=== PATIENT | male | born 1985 | race Caucasian/White ===

== ENCOUNTER 2019-10-05 12:25 | Inpatient (IN) ==
[2019-10-05 13:42] LABS: Amylase * 35 U/L (25-115); Lipase 108 U/L (73-393)
[2019-10-05] MEDS ORDERED: NORMAL SALINE 1,000 ML IV PRN (13:48)
[2019-10-05 14:04] LABS: Prothrombin Time (Patient) 12.2 Seconds (9.1-10.7)
[2019-10-05 14:08] LABS: INR 1.24 INR (0.92-1.08); Partial Thrombolplastin Time 26.4 Seconds (24-32)
[2019-10-05 14:13] LABS: Urine Bilirubin 1 mg/dl (NEGATIVE); Urine Blood Negative /ul (NEGATIVE); Urine Ketone 15 mg/dL (NEGATIVE); Urine Nitrite Negative (NEGATIVE); Urine Protein Negative (NEGATIVE); Urine Urobilinogen Normal (NORMAL)
[2019-10-05 14:20] LABS: CRP 24.8 mg/dL (0.0-0.9)
[2019-10-05 14:32] LABS: Urine Appearance Slightly Cloudy (CLEAR); Urine Color Amber; Urine WBC 0-5 /hpf (0-5)
[2019-10-05 14:33] LABS: Urine Bacteria TRACE; Urine RBC None Seen /hpf (0-5)
[2019-10-05 14:37] LABS: Cocaine Ur Negative (NEGATIVE); Urine Barbiturate Negative (NEGATIVE); Urine Benzodiazepines Negative (NEGATIVE); Urine Opiates Negative (NEGATIVE); Urine PCP Negative (NEGATIVE); Urine THC Negative (NEGATIVE)
--- NOTE | 2019-10-05 14:54 | ERNOTE ---
Lower Extremity HPI - Narrative Date of Service: 10/05/19 - General Lower Extremities Pain: leg: bilateral Time Seen by Provider: 10/05/19 13:21 Source: patient, family Exam Limitations: no limitations - Immun/Allergies/Home Medications Immunizations: IMMUNIZATION HX Immunizations Up to Date Yes History of Influenza Vaccine No Hx Pneumococcal Vaccination No Allergies/Adverse Reactions: Allergies Allergy/AdvReac Type Severity Reaction Status Date / Time No Known Allergies Allergy Verified 10/05/19 10:52 Home Medications: HOME MEDICATIONS NK 10/05/19 [Last Taken Unknown] - Pain Score Pain Score #1 Pain Score: 7 - History of Present Illness Narrative: The patient is a 34 year old male who presents for bilateral leg pain and fatigue which has been present since September 23. There are associated symptoms of intermittent fever. The patient reports bilateral thigh pain, 7/10. There are no alleviating factors. There are aggravating factors of activity. Previous treatments have included: none. The past medical history includes: previous cardiac cath September 04 which was negative. The social history is negative. The patient has had no known ill contacts. Patient was transferred to [facility] for possible [place] and had cardiac cath completed which was reported to patient as negative. Patient states he fell "ill" with fever and URI symptoms the week of and was prescribed Amoxil for clinical strep. Patient states that he has continued to have intermittent fever since September 23 with progressively worsening leg pain and fatigue with increased lethargy. Patient during course of illness has had follow up with cardiology, [facility] ER visit which both were reported as presumed viral illness. Patient today was sent to ER from [facility] with abnormal lab results of symptoms. Review of Systems - Review of Systems Constitutional: Present: fever, chills, diaphoresis, fatigue EYE: Present: no symptoms reported ENT: Present: no symptoms reported. Absent: ear pain, nasal drainage, sore throat Respiratory: Present: no symptoms reported. Absent: shortness of breath, cough Cardiology: Present: no symptoms reported. Absent: chest pain Gastrointestinal/Abdominal: Present: diarrhea, eating less, drinking less. Absent: nausea, vomiting, abdominal pain Genitourinary: Present: decreased urinary output. Absent: dysuria Musculoskeletal: Present: muscle pain - bilateral thighs and legs Skin: Present: no symptoms reported. Absent: rash Neurological: Present: weakness All Other Systems: All systems neg except as marked Medical History (Last Reviewed 10/05/19 @ 14:58 by DELILAH Oleary) Concern about heart attack without diagnosis says the support manager told him it was fluid that built up resembling a heart attack but don't think it was a heart attack No pertinent past medical history Surgical History: Surgical History (Last Reviewed 10/05/19 @ 14:58 by DELILAH Oleary) History of left heart catheterization Family History: Family History (Last Reviewed 10/05/19 @ 14:58 by DELILAH Oleary) Mother Myocardial infarction Father Cancer Social History: (Last Reviewed 10/05/19 @ 14:58 by DELILAH Oleary) Tobacco: Smoking Status: Never smoker Alcohol: alcohol intake: former Substance Use: substance use type: does not use Dietary Habits: caffeine: Yes Physical Exam - Physical Exam General Appearance: Present: wd/wn, alert, moderate distress, lethargic Head Exam: Present: normal inspection, no evidence of injury Eye Exam: Normal inspection: bilateral, PERRL: bilateral, EOMI: bilateral Neck: Present: normal inspection Respiratory: Present: no respiratory distress, normal breath sounds, no accessory muscle use, lungs clear Cardiovascular/Chest: Present: no murmur, tachycardia Gastrointestinal/Abdominal: Present: normal bowel sounds, nontender, nondistended, soft, no organomegaly Extremity Exam: Present: extremity edema - 1+ pitting bilateral lower extremities Neurological Exam: Present: alert, oriented, normal mood/affect, no motor/sensory deficits Skin Exam: Present: normal color, warm/dry Progress - Date and Time Seen: Date and Time: 10/05/19 15:05 Results of testing obtained outpatient from [facility] reviewed. Discussed results of testing with patient and family at bedside. Abnormal results without definitive findings of cause bacterial vs viral etiology. Discussed case with and will initiate treatment with Teflaro while cultures and remaining testing pending. Patient to US for Echo evaluation. Patient denies known exposure to tick borne disease, Lymes pending due to abnormal lab and leg pain. - Results and Orders Patient's Lab Results:: I have reviewed the patient's lab results. - Vital Signs Patient's Vital Signs:: I have reviewed the patient's vital signs. Vital Signs: Vital Signs 10/05/19 13:06 Temperature 36.4 C Pulse Rate 126 H Respiratory Rate 14 Blood Pressure 139/75 O2 Sat by Pulse Oximetry 99 - EKG EKG #1 EKG: NSR - tachycardia rate 120 EKG read: Reviewed by me - X-Ray X-Ray #1 X-Ray: chest Interpretation: Reviewed by me X-ray Comments: IMPRESSION: No acute cardiopulmonary process detected Electronically signed by Rohith Jensen M.D.. - Progress/Reassessment Chief Complaint: Lower Extremity Pain/ Injury Progress:: Unchanged Departure Clinical Impression: Hyponatremia, Acute hepatitis, Fever of unknown origin Leukocytosis Qualifiers: Leukocytosis type: unspecified Qualified Code(s): D72.829 - Elevated white blood cell count, unspecified - Departure Disposition: Still a patient Condition: Stable
[2019-10-05] MEDS: CEFTAROLINE FOSAMIL ACETATE 600 MG in DEXTROSE 5 % IN WATER 100 ML IV SCH ×2 (16:14)
--- NOTE | 2019-10-05 18:21 | HP ---
Chief Complaint - Chief Complaint Date of Service: 10/05/19 Time of Service: 16:43 Chief Complaint: Fatigue, lower extremity pain and fevers x3 weeks History of Present Illness: 34-year-old male with past medical history of learning disability presents from home with complaints of bilateral leg pain, recurrent fevers and fatigue. He was diagnosed with a myocardial infarct in early August and received a cardiac catheterization at [facility]. He was told his arteries were clear and the cause of his chest pain was secondary to inflammation. He was sent home with ibuprofen. One week later he began to feel ill again and developed recurrent fevers (up to 103 F), sore throat and was seen at the walk-in clinic where he was prescribed prednisone and amoxicillin for strep throat. He states fevers are resolved with ibuprofen but then would recur. He also complained of night sweats once the fever broke his bedsheets would be soaking wet. He states he developed diarrhea after being on amoxicillin but his symptoms of fever and sore throat did not improve. He then presented to the [facility] emergency department but was told there was his symptoms were secondary to a viral infection and was sent home. He denies any recent travel or any sick contacts. He then presented to the [place] walk-in clinic today and was found to have abnormal blood work with elevated white count and platelets. He was then sent to the emergency department. The patient was found to have a neutrophil predominant leukocytosis of 33,000, platelets of 640,000, sodium of 129, normal kidney function, calcium of 10.6, elevated liver enzymes, mildly elevated GGT of 114, negative troponin, BNP of 1,174, urine tox was negative, mono and strep were negative, urine was negative, and chest x-ray was negative. Echocardiogram was ordered and results are pending., Lyme titer pending. Medical History (Last Reviewed 10/05/19 @ 16:24 by Alberto Macdonald RN) Concern about heart attack without diagnosis says the information technology security manager told him it was fluid that built up resembling a heart attack but don't think it was a heart attack. Possible CHF No pertinent past medical history Surgical History: Surgical History (Last Reviewed 10/05/19 @ 16:24 by Alberto Macdonald RN) History of left heart catheterization Family History: Family History (Last Reviewed 10/05/19 @ 16:25 by Alberto Macdonald RN) Mother Myocardial infarction Father Cancer Social History: (Last Reviewed 10/05/19 @ 16:25 by Alberto Macdonald RN) Tobacco: Smoking Status: Never smoker Alcohol: alcohol intake: former Substance Use: substance use type: does not use Dietary Habits: caffeine: Yes Review Of Systems (GEN) - Review of Systems Generalized/Overall Review: Present: Chills, Fever EENTM: Present: Throat Pain Respiratory: Absent: Shortness of Breath Cardiac: Absent: Chest Pain Abdominal: Present: Diarrhea. Absent: Abdominal Pain Misc: All systems neg except as marked Immunizations: IMMUNIZATION HX Immunizations Up to Date Yes History of Influenza Vaccine No Hx Pneumococcal Vaccination No Allergies/Adverse Reactions: Allergies Allergy/AdvReac Type Severity Reaction Status Date / Time No Known Allergies Allergy Verified 10/05/19 10:52 Home Medications: HOME MEDICATIONS NK 10/05/19 [Last Taken Unknown] Exam - Exam Vital Signs: Vital Signs - Last Taken Temp 37.3 C 10/05/19 16:02 Pulse 105 H 10/05/19 16:02 Resp 14 10/05/19 16:02 BP 114/73 10/05/19 16:02 Pulse Ox 98 10/05/19 16:02 Constitutional: Present: Alert, Cooperative, Young, Thin and frail ENT Exam: Present: hearing grossly normal, dry mucous membranes Eye Exam: bilateral eye: normal inspection, EOMI Neck: Present: trachea midline, tender lateral - Bilaterally. Absent: lymphadenopathy (R), lymphadenopathy (L) Back Exam: Present: normal inspection, no CVA tenderness, no vertebral tenderness Respiratory: Present: chest non-tender, lungs clear, no respiratory distress, no accessory muscle use, No wheezing. Absent: crackles, rhonchi Cardiovascular/Chest: Present: normal peripheral pulses, no edema, no murmur, tachycardia Peripheral Pulses: dorsalis-pedis (R): 2+, dorsalis-pedis (L): 2+ Abdomen: Present: Normal bowel sounds, soft, nontender Extremity: Present: no pedal edema, leg pain - Bilateral Achilles tendon and desiree ateral posterior lateral aspect of upper thighs Skin Exam: Present: warm/dry, pallor Neurologic: Present: alert, normal mood/affect Appearance: Present: appropriate appearance, appropriate insight Eye contact: Present: cooperative Thoughts: Present: normal thought pattern, normal mood /affect Diagnostic Studies: Abnormal Lab Results 10/05/19 10/05/19 10/05/19 Range/Units 11:26 13:50 13:50 PT 12.2 H (9.1-10.7) Seconds INR (Anticoag Therapy) 1.24 H (0.92-1.08) INR GGT (4-104) U/L C-Reactive Prot, Quant 24.8 H (0.0-0.9) mg/dL B-Natriuretic Peptide 1174 H (5-140) pg/mL Urine Bilirubin 1 H (NEGATIVE) mg/dl Urine Ictotest Positive H (NEGATIVE) 10/05/19 Range/Units 14:13 PT (9.1-10.7) Seconds INR (Anticoag Therapy) (0.92-1.08) INR GGT 114 H (4-104) U/L C-Reactive Prot, Quant (0.0-0.9) mg/dL B-Natriuretic Peptide (5-140) pg/mL Urine Bilirubin (NEGATIVE) mg/dl Urine Ictotest (NEGATIVE) Laboratory Results PT 12.2 Seconds (9.1-10.7) H 10/05/19 13:50 INR (Anticoag Therapy) 1.24 INR (0.92-1.08) H 10/05/19 13:50 PTT (Grainger) 26.4 Seconds (24-32) 10/05/19 13:50 Lactic Acid, Venous 2.0 mmol/L (0.4-2.0) 10/05/19 13:50 GGT 114 U/L (4-104) H 10/05/19 14:13 Creatine Kinase Less than 7 U/L (0-259) 10/05/19 11:26 C-Reactive Prot, Quant 24.8 mg/dL (0.0-0.9) H 10/05/19 11:26 B-Natriuretic Peptide 1174 pg/mL (5-140) H 10/05/19 11:26 Amylase 35 U/L (25-115) 10/05/19 11:26 Lipase 108 U/L (73-393) 10/05/19 11:26 Urine Color Tash 10/05/19 13:50 Urine Appearance Slightly cloudy (CLEAR) 10/05/19 13:50 Urine pH 6.0 pH (5.0-7.0) 10/05/19 13:50 Ur Specific [place] 1.020 SP.GR. (1.005-1.030) 10/05/19 13:50 Urine Protein Negative mg/dL (NEGATIVE) 10/05/19 13:50 Urine Glucose (UA) Negative mg/dL (NEGATIVE) 10/05/19 13:50 Urine Ketones 15 mg/dL (NEGATIVE) 10/05/19 13:50 Urine Blood Negative /ul (NEGATIVE) 10/05/19 13:50 Urine Nitrate Negative (NEGATIVE) 10/05/19 13:50 Urine Bilirubin 1 mg/dl (NEGATIVE) H 10/05/19 13:50 Urine Ictotest Positive (NEGATIVE) H 10/05/19 13:50 Urine Urobilinogen Normal EU/dl (NORMAL) 10/05/19 13:50 Ur Leukocyte Esterase Negative /ul (NEGATIVE) 10/05/19 13:50 Urine RBC None seen /hpf (0-5) 10/05/19 13:50 Urine WBC 0-5 /hpf (0-5) 10/05/19 13:50 Ur Epithelial Cells 0-5 /hpf (0-5) 10/05/19 13:50 Urine Bacteria Trace (NONE) 10/05/19 13:50 Urine Culture Comments No culture indicated 10/05/19 13:50 Urine Opiates Screen Negative (NEGATIVE) 10/05/19 13:50 Barbiturate Screen Negative (NEGATIVE) 10/05/19 13:50 Ur Phencyclidine Scrn Negative (NEGATIVE) 10/05/19 13:50 Urine Amphetamine Negative (NEGATIVE) 10/05/19 13:50 U Benzodiazepines Scrn Negative (NEGATIVE) 10/05/19 13:50 Urine Cocaine Screen Negative (NEGATIVE) 10/05/19 13:50 Urine Marijuana (THC) Negative (NEGATIVE) 10/05/19 13:50 Monoscreen Negative (NEGATIVE) 10/05/19 13:50 Assessment/Plan - Narrative Narrative: 34-year-old male with past medical history of learning disability presents from home with complaints of bilateral leg pain, recurrent fevers and fatigue. He was diagnosed with a myocardial infarct in early August and received a cardiac catheterization at [facility]. He was told his arteries were clear and the cause of his chest pain was secondary to inflammation. He was sent home with ibuprofen. One week later he began to feel ill again and developed recurrent fevers (up to 103 F), sore throat and was seen at the walk-in clinic where he was prescribed prednisone and amoxicillin for strep throat. He states fevers are resolved with ibuprofen but then would recur. He also complained of night sweats once the fever broke his bedsheets would be soaking wet. He states he developed diarrhea after being on amoxicillin but his symptoms of fever and sore throat did not improve. He then presented to the [facility] emergency department but was told there was his symptoms were secondary to a viral infection and was sent home. He then presented to the [place] walk-in clinic today and was found to have abnormal blood work with elevated white count and platelets. He was then sent to the emergency department. The patient was found to have a neutrophil predominant leukocytosis of 33,000, platelets of 640,000, sodium of 129, normal kidney function, calcium of 10.6, elevated liver enzymes, mildly elevated GGT of 114, negative troponin, BNP of 1,174, urine tox was negative, mono and strep were negative, urine was negative, and chest x-ray was negative. Echocardiogram was ordered and results are pending., Lyme titer pending. He received 1 dose of Teflaro in the emergency department. Etiology of the leukocytosis, fever and leg pain is unclear. Differential includes infectious endocarditis versus lymphoma versus rheumatologic disease. Awaiting echocardiogram to rule out endocarditis. Blood cultures are pending. If symptoms of fever persist overnight I may consider ordering a CT abdomen/pelvis and chest to rule out lymphoma. Plan #1 continue with Teflaro #2 obtain CBC and CMP in the morning #3 IV fluid hydration with normal saline at 75 cc/h #4 VTE prophylaxis with Lovenox #5 follow-up echocardiogram and blood cultures - Assessment/Plan (1) Fever Problem: Acute Qualifiers: Encounter type: initial encounter (2) Thrombocytosis Problem: Acute (3) Leg pain, bilateral Problem: Acute (4) Fatigue Problem: Acute (5) Leukocytosis Problem: Acute Qualifiers: Leukocytosis type: unspecified Qualified Code(s): D72.829 - Elevated white blood cell count, unspecified (6) Hyponatremia Problem: Acute (7) Acute hepatitis Problem: Acute
[2019-10-05] MEDS: NORMAL SALINE 1,000 ML IV PRN (19:03)
[2019-10-05] MEDS: ENOXAPARIN SODIUM 40 MG/0.4 ML SYRG SC SCH (19:05)
[2019-10-05] MEDS: ACETAMINOPHEN 325 MG TABLET PO PRN (23:32)
[2019-10-06] MEDS: CEFTAROLINE FOSAMIL ACETATE 600 MG in DEXTROSE 5 % IN WATER 100 ML IV SCH ×6 (02:59→17:22)
[2019-10-06 06:56] LABS: Hematocrit 38.2 % (42.0-52.0); Hemoglobin 12.7 gm/dL (13.5-18.0); Mean Cell Volume 89.9 fl (78-100); Mean Corpuscular Hemoglobin 29.9 pg (27-31); Mean Corpuscular Hgb Conc 33.2 g/dl (32-36); Mean Platelet Volume 8.4 fl (8-11.3); Platelet Count 507 K/mm3 (150-450); Red Blood Count 4.25 M/mm3 (4.7-6.0); Red Cell Distribution Width 13.7 % (11.5-14.0); White Blood Count 29.3 K/mm3 (4.0-10.5)
[2019-10-06 06:58] LABS: Total Cells Counted 100
[2019-10-06 07:09] LABS: Albumin * 1.8 gm/dl (3.4-5.0); Anion Gap 10.7 mmol/L (6.8-13.8); BUN/Creatinine Ratio 13.4 (9.0-21.6); Ca. Corrected For Albumin 10.4 mg/dL (8.4-10.2); Carbon Dioxide 29.5 mmol/L (24-32.6); Potassium 4.2 mmol/L (3.4-4.6); Total Protein 7.1 gm/dL (6.2-8.2)
[2019-10-06 07:17] LABS: Band 7 % (0-2.0); Lymphocyte 7 % (20-51); Monocyte 3 % (0-9); Neutrophil 83 % (42-75); Neutrophil # 24.3 K/mm3 (1.3-6.0)
[2019-10-06 07:18] LABS: Platelet Estimate Increased (NORMAL)
[2019-10-06 07:19] LABS: Basophilic Stippling Trace
[2019-10-06 07:20] LABS: Toxic Granulation Trace
[2019-10-06] MEDS: NORMAL SALINE 1,000 ML IV PRN ×2 (08:52→23:25)
--- NOTE | 2019-10-06 10:36 | ECHO ---
This report is available in the EMR
[2019-10-06] MEDS ORDERED: DIATRIZOATE MEGLUMINE, SODIUM 30 ML BTL PO ONE (11:28)
--- NOTE | 2019-10-06 15:18 | PN ---
Subjective - Date and Time Seen Date: 10/06/19 Time: 09:00 Subjective Narrative: He continues to feel fatigued and did spike a fever with night sweats overnight. Objective - Review of Systems Generalized/Overall Review: Reports: Chills, Fever, Diaphoresis Respiratory: Denies: Shortness of Breath Cardiac: Denies: Chest Pain Abdominal: Denies: Abdominal Pain Misc: All systems neg except as marked - Vitals Vitals: Last Vital Signs Temp 37.3 C 10/06/19 13:33 Pulse 113 H 10/06/19 13:33 Resp 18 10/06/19 13:33 BP 102/64 10/06/19 13:33 Pulse Ox 98 10/06/19 13:33 - Abnormal Lab Findings Abnormal Lab Findings: Abnormal Lab Results 10/06/19 10/06/19 10/06/19 Range/Units 06:51 06:51 06:51 WBC 29.3 H (4.0-10.5) K/mm3 RBC 4.25 L (4.7-6.0) M/mm3 Hgb 12.7 L (13.5-18.0) gm/dL Hct 38.2 L (42.0-52.0) % Plt Count 507 H (150-450) K/mm3 Neutrophils % (Manual) 83 H (42-75) % Band Neuts % (Manual) 7 H (0-2.0) % Lymphocytes % (Manual) 7 L (20-51) % Neutrophils # (Manual) 24.3 H (1.3-6.0) K/mm3 Platelet Estimate Increased H (NORMAL) ESR (0-10) mm/hr Est GFR (Non-Af Amer) 143 H (60-130) mL/min Random Glucose 125 H (70-110) mg/dL Calcium Adj for Albumin 10.4 H (8.4-10.2) mg/dL AST 123 H (0-48) U/L ALT 203 H (19-67) U/L Alkaline Phosphatase 221 H (50-170) U/L Albumin 1.8 L (3.4-5.0) gm/dl Procalcitonin 0.97 H (0.05-0.50) ng/mL 10/06/19 Range/Units 06:51 WBC (4.0-10.5) K/mm3 RBC (4.7-6.0) M/mm3 Hgb (13.5-18.0) gm/dL Hct (42.0-52.0) % Plt Count (150-450) K/mm3 Neutrophils % (Manual) (42-75) % Band Neuts % (Manual) (0-2.0) % Lymphocytes % (Manual) (20-51) % Neutrophils # (Manual) (1.3-6.0) K/mm3 Platelet Estimate (NORMAL) ESR 106 H (0-10) mm/hr Est GFR (Non-Af Amer) (60-130) mL/min Random Glucose (70-110) mg/dL Calcium Adj for Albumin (8.4-10.2) mg/dL AST (0-48) U/L ALT (19-67) U/L Alkaline Phosphatase (50-170) U/L Albumin (3.4-5.0) gm/dl Procalcitonin (0.05-0.50) ng/mL - Exam Constitutional: Present: Alert, Cooperative, Well developed, Well nourished, No distress, Thin and frail ENT Exam: Present: hearing grossly normal Neck: Present: non-tender. Absent: lymphadenopathy (R), lymphadenopathy (L) Respiratory: Present: lungs clear, no respiratory distress, no accessory muscle use, No wheezing. Absent: crackles, rhonchi Cardiovascular/Chest: Present: normal peripheral pulses, regular rate, rhythm, no edema, no murmur Abdomen: Present: Normal bowel sounds, soft, nontender Extremity: Present: no pedal edema, other - Pinpoint tenderness to the right Achilles tendon and the posterior/lateral aspect of both thighs Skin Exam: Present: warm/dry, pallor Neurologic: Present: no motor/sensory deficits, alert, normal mood/affect Appearance: Present: appropriate appearance, appropriate insight Eye contact: Present: cooperative Thoughts: Present: normal thought pattern, normal mood /affect Assessment/Plan Plan Narrative: 34-year-old male with past medical history of learning disability presents from home with complaints of bilateral leg pain, recurrent fevers and fatigue. He was diagnosed with a myocardial infarct in early August and received a cardiac catheterization at [facility]. He was told his arteries were clear and the cause of his chest pain was secondary to inflammation. He was sent home with ibuprofen. One week later he began to feel ill again and developed recurrent fevers (up to 103 F), sore throat and was seen at the walk-in clinic where he was prescribed prednisone and amoxicillin for strep throat. He states fevers are resolved with ibuprofen but then would recur. He also complained of night sweats once the fever broke his bedsheets would be soaking wet. He states he developed diarrhea after being on amoxicillin but his symptoms of fever and sore throat did not improve. He then presented to [facility] but was told there was his symptoms were secondary to a viral infection and was sent home. He then presented to the [facility] walk-in clinic today and was found to have abnormal blood work with elevated white count and platelets. He was then sent to the emergency department. The patient was found to have a neutrophil predominant leukocytosis of 33,000, platelets of 640,000, sodium of 129, normal kidney function, calcium of 10.6, elevated liver enzymes, mildly elevated GGT of 114, negative troponin, BNP of 1,174, urine tox was negative, mono and strep were negative, urine was negative, and chest x-ray was negative. Echocardiogram was ordered and results are pending., Lyme titer pending. He received 1 dose of Teflaro in the emergency department. Etiology of the leukocytosis, fever and leg pain is unclear. Differential includes infectious endocarditis versus lymphoma versus rheumatologic disease. Echocardiogram showed hyperactivity. Blood cultures show no growth. CT chest showed minimal linear density in the costophrenic angle suggestive of atelectasis. CT abdomen showed mild hepatosplenomegaly, multiple small lymph nodes in the mesentery and small amount of free fluid in the pelvis. I consulted with infectious disease at [facility] Dr. Bobby Heredia and she recommended obtaining ESR, pro calcitonin, EBV panel and CMV, she was in agreement with obtaining the CT chest abdomen pelvis to look for focus of infection. She also stated that if no focus of infection is found and the patient is not septic, it may be beneficial to stop the antibiotics because we do not know what we are treating. If fever and leukocytosis persist over the next d 1 or 2 days, I will consider transferring him to a facility for a higher level of care in order for him to be evaluated by multiple specialists including rheumatology, hematology/oncology and infectious disease. He could also obtain a BRANDON to rule out endocarditis. #1 continue with Teflaro #2 obtain CBC and CMP in the morning #3 Due to his poor oral intake I will continue IV fluid hydration with normal saline at 75 cc/h #4 VTE prophylaxis with Lovenox, he has declined to receive Lovenox and also declines the compression devices #5 Tylenol 650 mg every 6 hours as needed fever and pain - Problems/Diagnosis (1) Fever Problem: Acute Qualifiers: Encounter type: initial encounter (2) Thrombocytosis Problem: Acute (3) Leg pain, bilateral Problem: Acute (4) Fatigue Problem: Acute (5) Leukocytosis Problem: Acute Qualifiers: Leukocytosis type: unspecified Qualified Code(s): D72.829 - Elevated white blood cell count, unspecified (6) Hyponatremia Problem: Acute (7) Acute hepatitis Problem: Acute
[2019-10-06] MEDS: ENOXAPARIN SODIUM 40 MG/0.4 ML SYRG SC SCH (17:18)
[2019-10-07] MEDS: CEFTAROLINE FOSAMIL ACETATE 600 MG in DEXTROSE 5 % IN WATER 100 ML IV SCH ×4 (04:00→15:27)
[2019-10-07 06:57] LABS: Hematocrit 34.4 % (42.0-52.0); Hemoglobin 11.2 gm/dL (13.5-18.0); Mean Cell Volume 90.5 fl (78-100); Mean Corpuscular Hemoglobin 29.5 pg (27-31); Mean Corpuscular Hgb Conc 32.6 g/dl (32-36); Mean Platelet Volume 8.6 fl (8-11.3); Platelet Count 470 K/mm3 (150-450); Red Cell Distribution Width 13.9 % (11.5-14.0); White Blood Count 19.8 K/mm3 (4.0-10.5)
[2019-10-07 07:33] LABS: Albumin * 1.7 gm/dl (3.4-5.0); BUN/Creatinine Ratio 12.5 (9.0-21.6); Bilirubin, Total 0.7 mg/dL (0.0-1.1); Ca. Corrected For Albumin 9.5 mg/dL (8.4-10.2); Total Protein 5.8 gm/dL (6.2-8.2)
[2019-10-07 07:50] LABS: Anion Gap 12.3 mmol/L (6.8-13.8); Potassium 4.3 mmol/L (3.4-4.6)
[2019-10-07 10:49] LABS: Total Cells Counted 100
[2019-10-07 10:52] LABS: Band 1 % (0-2.0); Eosinophil 1 % (0-3); Immature Granulocyte 1 (0-1); Lymphocyte 5 % (20-51); Monocyte 2 % (0-9); Neutrophil 90 % (42-75); Neutrophil # 17.8 K/mm3 (1.3-6.0)
[2019-10-07 10:54] LABS: Platelet Estimate Increased (NORMAL)
--- NOTE | 2019-10-07 12:43 | PATHPSR ---
PHYSICIAN: Kathe Alexis MD LAB#: [id number] SPECIMEN DATE: 10/07/2019 CLINICAL INFORMATION: The patient is a 34-year-old man with medical history of learning disability who presents from home with complaints of bilateral leg pain, recurrent fevers and fatigue. Patient has elevated liver enzymes, BNP of 1174 pg/ml and so far blood cultures are negative. The patient presented with increased leukocytosis 29.3 K/mm3 predominantly neutrophils. A peripheral smear review by pathologist is ordered for this reason. CBC: WBC 19.8 K/mm3, hemoglobin 11.2 gm/dl, hematocrit 34.4 %, MCV is 90.5 fl, MCH is 29.5 pg, MCHC is 32.6 g/dl, Platelet count 470,000/mm. Manual differential: Neutrophils 90 %, bands 1 %, lymphocytes 5 %, monocytes 2 %, eosinophils 1 %, immature granulocytes 1%. RED BLOOD CELLS: Normochromic normocytic anemia PLATELETS: Minimal thrombocytosis WHITE BLOOD CELLS: Leukocytosis with relative and absolute neutrophilia DIAGNOSIS: PERIPHERAL BLOOD SMEAR, REVIEW BY PATHOLOGIST: -MODERATE LEUKOCYTOSIS WITH RELATIVE AND ABSOLUTE NEUTROPHILIA COMMENT: The findings are consistent with reactive leukocytosis/neutrophilia due to an inflammatory condition. Blood cultures have been ordered and a search for a primary bacterial site of infection is suggested. The patient has indications of both chronic and acute liver disease. Further work-up would be necessary to determine the etiology. No immature elements or malignancy is identified on our examination. The case findings are discussed with Dr. Escalante on 10/07/2019.
[2019-10-07] MEDS: NORMAL SALINE 1,000 ML IV PRN (13:27)
--- NOTE | 2019-10-07 17:15 | PN ---
Subjective - Date and Time Seen Date: 10/07/19 Time: 08:43 Subjective Narrative: He states he feels better today and denied any fevers overnight. He states the pain in his ankles has improved but he has pain in the front of his thighs this morning. He is not sure which because he walked a lot yesterday. He feels stable and ambulating and is tolerating a diet. He still complains of an intermittent sore throat. Objective - Review of Systems Generalized/Overall Review: Denies: Chills, Fever EENTM: Reports: Throat Pain Respiratory: Denies: Cough, Shortness of Breath Cardiac: Denies: Chest Pain Abdominal: Denies: Abdominal Pain Musculoskeletal Complaints: Reports: Muscle Pain - Bilateral thighs Misc: All systems neg except as marked - Vitals Vitals: Last Vital Signs Temp 36.8 C 10/07/19 14:49 Pulse 89 10/07/19 14:49 Resp 24 H 10/07/19 14:49 BP 103/68 10/07/19 14:49 Pulse Ox 98 10/07/19 14:49 - Abnormal Lab Findings Abnormal Lab Findings: Abnormal Lab Results 10/07/19 10/07/19 10/07/19 Range/Units 06:00 06:20 06:20 WBC 19.8 H D (4.0-10.5) K/mm3 RBC 3.80 L (4.7-6.0) M/mm3 Hgb 11.2 L (13.5-18.0) gm/dL Hct 34.4 L (42.0-52.0) % Plt Count 470 H (150-450) K/mm3 Neutrophils % (Manual) 90 H (42-75) % Lymphocytes % (Manual) 5 L (20-51) % Neutrophils # (Manual) 17.8 H (1.3-6.0) K/mm3 Lymphocytes # (Manual) 1.0 L (1.5-3.5) k/mm3 Platelet Estimate Increased H (NORMAL) Percent Retic 2.0 H (0.4-1.8) % Immature Retic Fraction 16.9 H (2.3-13.4) % Est GFR (Non-Af Amer) 150 H (60-130) mL/min AST 118 H (0-48) U/L ALT 176 H (19-67) U/L Alkaline Phosphatase 183 H (50-170) U/L Total Protein 5.8 L (6.2-8.2) gm/dL Albumin 1.7 L (3.4-5.0) gm/dl - Exam Constitutional: Present: Alert, Cooperative, Well developed, Well nourished ENT Exam: Present: hearing grossly normal Neck: Present: trachea midline. Absent: lymphadenopathy (R), lymphadenopathy (L) Respiratory: Present: lungs clear, no respiratory distress, no accessory muscle use, No wheezing. Absent: crackles, rhonchi Cardiovascular/Chest: Present: normal peripheral pulses, regular rate, rhythm, no murmur Abdomen: Present: Normal bowel sounds, soft, nontender Extremity: Present: no pedal edema Skin Exam: Present: warm/dry, pallor. Absent: skin rash Neurologic: Present: alert, normal mood/affect Appearance: Present: appropriate appearance, appropriate insight Eye contact: Present: cooperative, good eye contact Thoughts: Present: normal thought pattern, normal mood /affect Assessment/Plan Plan Narrative: 34-year-old male with past medical history of learning disability presents from home with complaints of bilateral leg pain, recurrent fevers and fatigue. He was diagnosed with a myocardial infarct in early August and received a cardiac catheterization at [facility]. He was told his arteries were clear and the cause of his chest pain was secondary to inflammation. He was sent home with ibuprofen. One week later he began to feel ill again and developed recurrent fevers (up to 103 F), sore throat and was seen at the walk-in clinic where he was prescribed prednisone and amoxicillin for strep throat. He states fevers are resolved with ibuprofen but then would recur. He also complained of night sweats once the fever broke his bedsheets would be soaking wet. He states he developed diarrhea after being on amoxicillin but his symptoms of fever and sore throat did not improve. He then presented to the [place] emergency department but was told there was his symptoms were secondary to a viral infection and was sent home. He then presented to the [place] walk-in clinic today and was found to have abnormal blood work with elevated white count and platelets. He was then sent to the emergency department. The patient was found to have a neutrophil predominant leukocytosis of 33,000, platelets of 640,000, sodium of 129, normal kidney function, calcium of 10.6, elevated liver enzymes, mildly elevated GGT of 114, negative troponin, BNP of 1,174, urine tox was negative, mono and strep were negative, urine was negative, and chest x-ray was negative. Echocardiogram was ordered and results are pending., Lyme titer pending. He received 1 dose of Teflaro in the emergency department. Etiology of the leukocytosis, fever and leg pain is unclear. Differential includes infectious endocarditis versus lymphoma versus rheumatologic disease. Echocardiogram showed hyperactivity. Blood cultures show no growth. CT chest showed minimal linear density in the costophrenic angle suggestive of atelectasis. CT abdomen showed mild hepatosplenomegaly, multiple small lymph nodes in the mesentery and small amount of free fluid in the pelvis. I consulted with infectious disease at [facility] Dr. Bobby Heredia and she recommended obtaining ESR, pro calcitonin, EBV panel and CMV, she was in agreement with obtaining the CT chest abdomen pelvis to look for focus of infection. She also stated that if no focus of infection is found and the patient is not septic, it may be beneficial to stop the antibiotics because we do not know what we are treating. However since he is now afebrile and WBCs are downtrending I will keep him on the Teflaro. Today he feels better and his blood work also has improved. Vitals are stable. I ordered a peripheral smear today and the pathologist stated there is evidence of reactive leukocytosis/neutrophilia due to an inflammatory condition. No immature element s of malignancy has been identified. Plan #1 continue with Teflaro day 3 #2 obtain CBC and CMP in the morning #3 Due to his poor oral intake I will continue IV fluid hydration with normal saline at 75 cc/h #4 VTE prophylaxis with Lovenox, he has declined to receive Lovenox and also declines the compression devices #5 Tylenol 650 mg every 6 hours as needed fever and pain - Problems/Diagnosis (1) Fever Problem: Acute Qualifiers: Encounter type: initial encounter (2) Thrombocytosis Problem: Acute (3) Leg pain, bilateral Problem: Acute (4) Fatigue Problem: Acute (5) Leukocytosis Problem: Acute Qualifiers: Leukocytosis type: unspecified Qualified Code(s): D72.829 - Elevated white blood cell count, unspecified (6) Hyponatremia Problem: Resolved (7) Acute hepatitis Problem: Acute (8) Reactive thrombocytosis Problem: Acute
[2019-10-07] MEDS: ENOXAPARIN SODIUM 40 MG/0.4 ML SYRG SC SCH (17:26)
[2019-10-08] MEDS: NORMAL SALINE 1,000 ML IV PRN ×2 (03:37→18:05)
[2019-10-08] MEDS: CEFTAROLINE FOSAMIL ACETATE 600 MG in DEXTROSE 5 % IN WATER 100 ML IV SCH ×4 (04:02→16:47)
[2019-10-08 06:35] LABS: Hematocrit 37.6 % (42.0-52.0); Hemoglobin 11.9 gm/dL (13.5-18.0); Mean Cell Volume 91.5 fl (78-100); Mean Corpuscular Hgb Conc 31.6 g/dl (32-36); Mean Platelet Volume 8.4 fl (8-11.3); Neutrophil % 81.9 % (42-75.0); Platelet Count 496 K/mm3 (150-450); Red Blood Count 4.11 M/mm3 (4.7-6.0); Red Cell Distribution Width 13.9 % (11.5-14.0); White Blood Count 14.7 K/mm3 (4.0-10.5)
[2019-10-08 06:50] LABS: Albumin * 1.8 gm/dl (3.4-5.0); Anion Gap 10.6 mmol/L (6.8-13.8); BUN/Creatinine Ratio 10.4 (9.0-21.6); Bilirubin, Total 0.6 mg/dL (0.0-1.1); Ca. Corrected For Albumin 10.3 mg/dL (8.4-10.2); Calcium * 8.9 mg/dL (7.9-10.9); Carbon Dioxide 29.2 mmol/L (24-32.6); Potassium 3.8 mmol/L (3.4-4.6); Total Protein 7.2 gm/dL (6.2-8.2)
--- NOTE | 2019-10-08 12:10 | PN ---
Subjective - Date and Time Seen Date: 10/08/19 Time: 08:52 Subjective Narrative: He states he feels much better today, pain in his legs is improved, sore throat is improving, he is tolerating his diet, moving his bowels and urinating without difficulty. He also continues to ambulate without any problems. He would like to go home as soon as possible. Objective - Review of Systems Generalized/Overall Review: Denies: Chills, Fever EENTM: Reports: Throat Pain - Improving Respiratory: Denies: Cough, Shortness of Breath Cardiac: Denies: Chest Pain Abdominal: Denies: Abdominal Pain Musculoskeletal Complaints: Reports: Muscle Pain - Mild in bilateral thighs. Denies: Joint Pain Misc: All systems neg except as marked - Vitals Vitals: Last Vital Signs Temp 37.1 C 10/08/19 10:17 Pulse 100 10/08/19 10:17 Resp 16 10/08/19 10:17 BP 112/77 10/08/19 10:17 Pulse Ox 97 10/08/19 10:17 - Abnormal Lab Findings Abnormal Lab Findings: Abnormal Lab Results 10/06/19 10/08/19 10/08/19 Range/Units 06:50 06:22 06:22 WBC 14.7 H D (4.0-10.5) K/mm3 RBC 4.11 L (4.7-6.0) M/mm3 Hgb 11.9 L (13.5-18.0) gm/dL Hct 37.6 L (42.0-52.0) % MCHC 31.6 L (32-36) g/dl Plt Count 496 H (150-450) K/mm3 Immature Gran % (Auto) 2.40 H (0.001-0.429) % Immature Gran # (Auto) 0.35 H (0.000-0.0310) K/mm3 Neutrophils % 81.9 H (42-75.0) % Lymphocytes % 10.0 L (20-51) % Neutrophils # 12.0 H (1.3-6.0) K/mm3 Lymphocytes # 1.46 L (1.5-3.5) k/mm3 Est GFR (Non-Af Amer) 143 H (60-130) mL/min Calcium Adj for Albumin 10.3 H (8.4-10.2) mg/dL AST 166 H (0-48) U/L ALT 241 H (19-67) U/L Alkaline Phosphatase 209 H (50-170) U/L Albumin 1.8 L (3.4-5.0) gm/dl EBV IgG Ab 60.10 H U/mL EBV Nucl Ag IgG Sig Str 185.00 H U/mL - Exam Constitutional: Present: Alert, Cooperative, Well developed, Well nourished, No distress ENT Exam: Present: hearing grossly normal Neck: Present: non-tender, supple, trachea midline. Absent: lymphadenopathy (R), lymphadenopathy (L) Respiratory: Present: lungs clear, no respiratory distress, no accessory muscle use, No wheezing. Absent: crackles, rhonchi Cardiovascular/Chest: Present: normal peripheral pulses, regular rate, rhythm, no edema, no murmur Abdomen: Present: Normal bowel sounds, soft, nontender Extremity: Present: normal range of motion, non-tender, no pedal edema Skin Exam: Present: normal color, warm/dry, no cyanosis Neurologic: Present: alert, normal mood/affect Appearance: Present: appropriate appearance, appropriate insight Eye contact: Present: cooperative, good eye contact Thoughts: Present: normal thought pattern, normal mood /affect Assessment/Plan Plan Narrative: 34-year-old male with past medical history of learning disability presents from home with complaints of bilateral leg pain, recurrent fevers and fatigue. He was diagnosed with a myocardial infarct in early August and received a cardiac catheterization at [facility]. He was told his arteries were clear and the cause of his chest pain was secondary to inflammation. He was sent home with ibuprofen. One week later he began to feel ill again and developed recurrent fevers (up to 103 F), sore throat and was seen at the walk-in clinic where he was prescribed prednisone and amoxicillin for strep throat. He states fevers are resolved with ibuprofen but then would recur. He also complained of night sweats once the fever broke his bedsheets would be soaking wet. He states he developed diarrhea after being on amoxicillin but his symptoms of fever and sore throat did not improve. He then presented to the [place] emergency department but was told there was his symptoms were secondary to a viral infection and was sent home. He then presented to the [place] walk-in clinic today and was found to have abnormal blood work with elevated white count and platelets. He was then sent to the emergency department. The patient was found to have a neutrophil predominant leukocytosis of 33,000, platelets of 640,000, sodium of 129, normal kidney function, calcium of 10.6, elevated liver enzymes, mildly elevated GGT of 114, negative troponin, BNP of 1,174, urine tox was negative, mono and strep were negative, urine was negative, and chest x-ray was negative. Echocardiogram was ordered and results are pending., Lyme titer pending. He received 1 dose of Teflaro in the emergency department. Etiology of the leukocytosis, fever and leg pain is unclear. Differential includes is likely infectious, rheumatologic less likely due to his significant improvement on the Teflaro. Hematologic etiology is less likely also since peripheral smear showed reactive leukocytosis/neutrophilia, no immature elements of malignancy. Echocardiogram showed hyperactivity. Blood cultures show no growth but he did have a dose of antibiotics a week prior to presentation with amoxicillin so the cultures could have been falsely negative. CT chest showed minimal linear density in the costophrenic angle suggestive of atelectasis. CT abdomen showed mild hepatosplenomegaly, multiple small lymph nodes in the mesen jillian and small amount of free fluid in the pelvis. I consulted with infectious disease at [facility] Dr. Bobby Heredia and she recommended obtaining ESR, pro calcitonin, EBV panel and CMV, she was in agreement with obtaining the CT chest abdomen pelvis to look for focus of infection. She also stated that if no focus of infection is found and the patient is not septic, it may be beneficial to stop the antibiotics because we do not know what we are treating. However since he is now afebrile and WBCs are downtrending I will keep him on the Teflaro. Today he continues to feel better and his blood work also has improved. Vitals are stable. His LFTs have increased a little bit but I will not work-up hepatitis due to LFTs not being significantly elevated (10-20 times upper limit of normal). Awaiting Lyme panel, EBV and CMV panels. Plan #1 continue with Teflaro day 3 #2 obtain CBC and CMP in the morning #3 His oral intake is improving however at times he eats 25% to 100% of his meals. Continue with normal saline at 75 cc/h. #4 VTE prophylaxis with Lovenox, he has declined to receive Lovenox and also declines the compression devices #5 Tylenol 650 mg every 6 hours as needed fever and pain - Problems/Diagnosis (1) Fever Problem: Acute Qualifiers: Encounter type: initial encounter (2) Leg pain, bilateral Problem: Acute (3) Fatigue Problem: Acute (4) Leukocytosis Problem: Acute Qualifiers: Leukocytosis type: unspecified Qualified Code(s): D72.829 - Elevated white blood cell count, unspecified (5) Hyponatremia Problem: Resolved (6) Acute hepatitis Problem: Acute (7) Reactive thrombocytosis Problem: Acute
[2019-10-08] MEDS: ENOXAPARIN SODIUM 40 MG/0.4 ML SYRG SC SCH (18:26)
[2019-10-08] MEDS: ACETAMINOPHEN 325 MG TABLET PO PRN (21:22)
[2019-10-09] MEDS: CEFTAROLINE FOSAMIL ACETATE 600 MG in DEXTROSE 5 % IN WATER 100 ML IV SCH ×2 (04:27)
[2019-10-09] MEDS: ACETAMINOPHEN 325 MG TABLET PO PRN (04:41)
[2019-10-09 06:19] LABS: Hematocrit 34.9 % (42.0-52.0); Hemoglobin 11.3 gm/dL (13.5-18.0); Mean Cell Volume 89.9 fl (78-100); Mean Corpuscular Hemoglobin 29.1 pg (27-31); Mean Corpuscular Hgb Conc 32.4 g/dl (32-36); Mean Platelet Volume 8.1 fl (8-11.3); Platelet Count 469 K/mm3 (150-450); Red Blood Count 3.88 M/mm3 (4.7-6.0); Red Cell Distribution Width 13.7 % (11.5-14.0); White Blood Count 22.5 K/mm3 (4.0-10.5)
[2019-10-09 06:22] LABS: Total Cells Counted 100
[2019-10-09 06:41] LABS: Albumin * 1.6 gm/dl (3.4-5.0); BUN/Creatinine Ratio 8.6 (9.0-21.6); Band 2 % (0-2.0); Bilirubin, Total 0.7 mg/dL (0.0-1.1); Ca. Corrected For Albumin 10.1 mg/dL (8.4-10.2); Calcium * 8.5 mg/dL (7.9-10.9); Carbon Dioxide 26.2 mmol/L (24-32.6); Immature Granulocyte 1 (0-1); Lymphocyte 8 % (20-51); Monocyte 1 % (0-9); Neutrophil 88 % (42-75); Neutrophil # 19.8 K/mm3 (1.3-6.0); Potassium 4.2 mmol/L (3.4-4.6); Total Protein 5.9 gm/dL (6.2-8.2)
[2019-10-09 06:42] LABS: Platelet Estimate Increased (NORMAL)
[2019-10-09 06:44] LABS: RBC Morphology Normal (NORMAL)
[2019-10-09] MEDS: NORMAL SALINE 1,000 ML IV PRN (08:17)
--- NOTE | 2019-10-09 10:03 | DS ---
(1) Fever Problem: Acute Qualifiers: Encounter type: initial encounter (2) Leg pain, bilateral Problem: Resolved (3) Fatigue Problem: Acute (4) Leukocytosis Problem: Acute Qualifiers: Leukocytosis type: unspecified Qualified Code(s): D72.829 - Elevated white blood cell count, unspecified (5) Hyponatremia Problem: Resolved (6) Acute hepatitis Problem: Acute (7) Reactive thrombocytosis Problem: Acute Hospital Course: 34-year-old male with past medical history of learning disability presents from home with complaints of bilateral leg pain, recurrent fevers and fatigue. He was diagnosed with a myocardial infarct in early August and received a cardiac catheterization at [facility]. He was told his arteries were clear and the cause of his chest pain was secondary to inflammation. He was sent home with ibuprofen. One week later he began to feel ill again and developed recurrent fevers (up to 103 F), sore throat and was seen at the walk-in clinic where he was prescribed prednisone and amoxicillin for strep throat. He states fevers are resolved with ibuprofen but then would recur. He also complained of night sweats once the fever broke his bedsheets would be soaking wet. He states he developed diarrhea after being on amoxicillin but his symptoms of fever and sore throat did not improve. He then presented to the [place] emergency department but was told there was his symptoms were secondary to a viral infection and was sent home. He then presented to the [place] walk-in clinic today and was found to have abnormal blood work with elevated white count and platelets. He was then sent to the emergency department. The patient was found to have a neutrophil predominant leukocytosis of 33,000, platelets of 640,000, sodium of 129, normal kidney function, calcium of 10.6, elevated liver enzymes, mildly elevated GGT of 114, negative troponin, BNP of 1,174, urine tox was negative, mono and strep were negative, urine was negative, and chest x-ray was negative. Echocardiogram was ordered and results are pending., Lyme titer pending. He received 1 dose of Teflaro in the emergency department. Etiology of the leukocytosis, fever and leg pain is unclear. Differential includes is likely infectious, rheumatologic less likely due to his significant improvement on the Teflaro. Hematologic etiology is less likely also since p eripheral smear showed reactive leukocytosis/neutrophilia, no immature elements of malignancy. Echocardiogram showed hyperactivity. Blood cultures show no growth but he did have a dose of antibiotics a week prior to presentation with amoxicillin so the cultures could have been falsely negative. CT chest showed minimal linear density in the costophrenic angle suggestive of atelectasis. CT abdomen showed mild hepatosplenomegaly, multiple small lymph nodes in the mesentery and small amount of free fluid in the pelvis. I consulted with infectious disease at [facility] Dr. Bobby Heredia and she recommended obtaining ESR, pro calcitonin, EBV panel and CMV, she was in agreement with obtaining the CT chest abdomen pelvis to look for focus of infection. She also stated that if no focus of infection is found and the patient is not septic, it may be beneficial to stop the antibiotics because we do not know what we are treating. However since he was afebrile and WBCs were downtrending I will kept him on the Teflaro. Vitals are stable. I have ordered extensive blood work. I am awaiting final results from the Lyme panel, acute hepatitis panel, HIV and CMV panels. EBV serology appears to be chronic rather than acute. Patient spiked a fever overnight of 38.7 C. His WBCs went up to 22,000 from 14,000 yesterday. His liver enzymes are also increasing today. I have explained to the patient that I still do not have a good understanding of why he is spiking fevers and why his blood work is abnormal. I have asked the patient to let us transfer him to [facility] to be evaluated by a short story writer and infectious disease doctor. I will not send him home on antibiotics because I do not have a focus of infection and the antibiotics are obviously not working due to his worsening state today. He insists on going home today. I have informed him that I do not recommend that he goes home today and if he does he will have to sign out AGAINST MEDICAL ADVICE. I have also informed him that if he signed out AGAINST MEDICAL ADVICE he could potentially get worse because the source of the fevers and abnormal blood work has not been identified or treated effectively. He understands this and still would like to go home AGAINST MEDICAL ADVICE. I have asked him to seek medical attention if his symptoms worsen and he should preferably go to the [place] emergency room so he can have access to a variety of specialist. Procedures Performed: none Results and Findings: Pending Mircobiology Results 10/05/19 14:00 Blood Blood Culture - Preliminary NO GROWTH AFTER 48 HOURS 10/05/19 13:50 Blood Blood Culture - Preliminary NO GROWTH AFTER 48 HOURS Lab Pending Results 10/05/19 11:26: Creatine Kinase Less than 7, Amylase 35, Lipase 108 10/05/19 11:26: C-Reactive Prot, Quant 24.8 H, B-Natriuretic Peptide 1174 H 10/05/19 13:50: PT 12.2 H, INR (Anticoag Therapy) 1.24 H, PTT ([place]) 26.4 10/05/19 13:50: Monoscreen Negative 10/05/19 13:50: Urine Color Tash, Urine Appearance Slightly cloudy, Urine pH 6.0, Ur Specific [place] 1.020, Urine Protein Negative, Urine Glucose (UA) Negative, Urine Ketones 15, Urine Blood Negative, Urine Nitrate Negative, Urine Bilirubin 1 H, Urine Ictotest Positive H, Urine Urobilinogen Normal, Ur Leukocyte Esterase Negative, Urine RBC None seen, Urine WBC 0-5, Ur Epithelial Cells 0-5, Urine Bacteria Trace, Urine Culture Comments No culture indicated 10/05/19 13:50: Urine Opiates Screen Negative, Barbiturate Screen Negative, Ur Phencyclidine Scrn Negative, Urine Amphetamine Negative, U Benzodiazepines Scrn Negative, Urine Cocaine Screen Negative, Urine Marijuana (THC) Negative 10/05/19 13:50: Lactic Acid, Venous 2.0 10/05/19 14:13: GGT 114 H 10/06/19 06:50: EBV IgG Ab 60.10 H, EBV IgM Ab <36.00, EBV Nucl Ag IgG Sig Str 185.00 H, EBV Antibody Interp See note 10/06/19 06:51: WBC 29.3 H, RBC 4.25 L, Hgb 12.7 L, Hct 38.2 L, MCV 89.9, MCH 29.9, MCHC 33.2, RDW 13.7, Plt Count 507 H, MPV 8.4, Neutrophils % (Manual) 83 H, Band Neuts % (Manual) 7 H, Lymphocytes % (Manual) 7 L, Monocytes % (Manual) 3, Neutrophils # (Manual) 24.3 H, Lymphocytes # (Manual) 2.1, Monocytes # (Manual) 0.9, Toxic Granulation Trace, Toxic Vacuolation Trace, Platelet Estimate Increased H, Basophilic Stippling Trace 10/06/19 06:51: Sodium 134, Plasma Sodium 134, Potassium 4.2, Chloride 98, Carbon Dioxide 29.5, Anion Gap 10.7, BUN 9, Creatinine 0.67, Est GFR (Non-Af Amer) 143 H, BUN/Creatinine Ratio 13.4, Random Glucose 125 H, Calcium 9.0, Calcium Adj for Albumin 10.4 H, Total Bilirubin 1.0, AST 123 H, ALT 203 H, Alkaline Phosphatase 221 H, Total Protein 7.1, Albumin 1.8 L 10/06/19 06:51: Procalcitonin 0.97 H 10/06/19 06:51: ESR 106 H 10/07/19 06:00: Absolute Retic 0.0756, Percent Retic 2.0 H, Immature Retic Fraction 16.9 H, Retic Hgb Content 31.4 10/07/19 06:20: WBC 19.8 H D, RBC 3.80 L, Hgb 11.2 L, Hct 34.4 L, MCV 90.5, MCH 29.5, MCHC 32.6, RDW 13.9, Plt Count 470 H, MPV 8.6, Immature Gran % (Auto) Fender Finisher, Immature Gran # (Auto) Fender Finisher, Neutrophils % , Neutrophils % (Manual) 90 H, Band Neuts % (Manual) 1, Lymphocytes % Fender Finisher, Lymphocytes % (Manual) 5 L, Monocytes % Fender Finisher, Monocytes % (Manual) 2, Eosinophils % Fender Finisher, Eosinophils % (Manual) 1, Basophils % Fender Finisher, Nucleated RBC % Fender Finisher, Immature Granulocytes 1, Neutrophils # Fender Finisher, Neutrophils # (Manual) 17.8 H, Lymphocytes # Fender Finisher, Lymphocytes # (Manual) 1.0 L, Monocytes # Fender Finisher, Monocytes # (Manual) 0.4, Eosinophils # Fender Finisher, Eosinophils # (Manual) 0.2, Absolute Basophils Fender Finisher, Platelet Estimate Increased H 10/07/19 06:20: Sodium 133, Plasma Sodium 133, Potassium 4.3, Chloride 98, Carbon Dioxide 27.0, Anion Gap 12.3, BUN 8, Creatinine 0.64, Est GFR (Non-Af Amer) 150 H, BUN/Creatinine Ratio 12.5, Random Glucose 106, Calcium 8.0, Calcium Adj for Albumin 9.5, Total Bilirubin 0.7, AST 118 H, ALT 176 H, Alkaline Phosphatase 183 H, Total Protein 5.8 L, Albumin 1.7 L 10/07/19 : Peripheral Blood Smear Smear sent to [facility]. 10/08/19 06:22: WBC 14.7 H D, RBC 4.11 L, Hgb 11.9 L, Hct 37.6 L, MCV 91.5, MCH 29.0, MCHC 31.6 L, RDW 13.9, Plt Count 496 H, MPV 8.4, Immature Gran % (Auto) 2.40 H, Immature Gran # (Auto) 0.35 H, Neutrophils % 81.9 H, Lymphocytes % 10.0 L, Monocytes % 4.9, Eosinophils % 0.5, Basophils % 0.3, Nucleated RBC % 0.0, Neutrophils # 12.0 H, Lymphocytes # 1.46 L, Monocytes # 0.7, Eosinophils # 0.1, Absolute Basophils 0.0 10/08/19 06:22: Sodium 137, Plasma Sodium 137, Potassium 3.8, Chloride 101, Carbon Dioxide 29.2, Anion Gap 10.6, BUN 7, Creatinine 0.67, Est GFR (Non-Af Amer) 143 H, BUN/Creatinine Ratio 10.4, Random Glucose 109, Calcium 8.9, Calcium Adj for Albumin 10.3 H, Total Bilirubin 0.6, AST 166 H, ALT 241 H, Alkaline Phosphatase 209 H, Total Protein 7.2, Albumin 1.8 L 10/09/19 06:10: WBC 22.5 H D, RBC 3.88 L, Hgb 11.3 L, Hct 34.9 L, MCV 89.9, MCH 29.1, MCHC 32.4, RDW 13.7, Plt Count 469 H, MPV 8.1, Neutrophils % (Manual) 88 H, Band Neuts % (Manual) 2, Lymphocytes % (Manual) 8 L, Monocytes % (Manual) 1, Immature Granulocytes 1, Neutrophils # (Manual) 19.8 H, Lymphocytes # (Manual) 1.8, Monocytes # (Manual) 0.2, Toxic Vacuolation 1+, Platelet Estimate Increased H, RBC Morphology Normal 10/09/19 06:10: Sodium 135, Plasma Sodium 136, Potassium 4.2, Chloride 100, Carbon Dioxide 26.2, Anion Gap 13.0, BUN 6, Creatinine 0.70, Est GFR (Non-Af Amer) 136 H, BUN/Creatinine Ratio 8.6 L, Random Glucose 132 H, Calcium 8.5, Calcium Adj for Albumin 10.1, Total Bilirubin 0.7, AST 288 H, ALT 381 H, Alkaline Phosphatase 226 H, Total Protein 5.9 L, Albumin 1.6 L Discharge Location: Home Disposition: Against medical advice Condition: Stable Discharge Activity: Activity as tolerated Discharge Diet: General/regular food Referrals: Kathe Alexis MD [Primary Care Provider] - Complete Home Medications List: Complete Home Medication List: NK 10/05/19
[2019-10-09 10:16] LABS: 18KD (IGG) Band REACTIVE; 23KD (IGG) Band NON-REACTIVE; 28KD (IgG) Band NON-REACTIVE; 30KD (IgG) Band NON-REACTIVE; 39KD (IgG) Band NON-REACTIVE; 39KD (IgM) Band NON-REACTIVE; 41KD (IgG) Band NON-REACTIVE; 45KD (IgG) Band NON-REACTIVE; 58KD (IgG) Band NON-REACTIVE; 66KD (IgG) Band NON-REACTIVE; 93KD (IgG) Band NON-REACTIVE; B burgdorferi IgM WB NEGATIVE (NEGATIVE); B.burgdorferi Ab (IgG) WB NEGATIVE (NEGATIVE)
[2019-10-09 10:56] LABS: 41KD (IgM) Band NON-REACTIVE
[2019-10-09 12:17] LABS: Hepatitis C Antibody NON-REACTIVE (NON-REACTIVE); Hepatitis Panel Confirmation DNR
[2019-10-09 13:20] LABS: Hepatitis B Surface Antigen NON-REACTIVE (NON-REACTIVE)
[2019-10-09 14:31] VITALS: BP 000/00
[2019-10-11 11:45] LABS: CMV Real Time PCR <200 IU/mL
== END 2019-10-09 13:05 | disposition left against medical advice (07) | DRG 442 ==
LOC: ER 12:25 → MS 14:56
PROVIDERS: ADMIT Internal Medicine; ATTEND Internal Medicine
CPT/HCPCS: 36415; 71020; 71046; 71260; 74177; 80053; 80074; 80307; 81001; 82150; 82550; 82977; 83519; 83605; 83690; 83880; 84145; 85007; 85025; 85045; 85060; 85610; 85652; 85730; 86140; 86308; 86617; 86664; 86665; 87040; 87389; 87497; 93005; 93306; 96360; 99285; Q9963; Q9967